=== PATIENT | male | born 1960 | race Caucasian/White ===

== ENCOUNTER 2018-09-16 13:03 | Emergency (ER) | payer BC ==
[~2018-09-16] VITALS: Ht 170.2 cm; Wt 72.7 kg
[2018-09-16 13:11] VITALS: BP 154/84
[2018-09-16] MEDS ORDERED: CEPH-572 PO (14:14)
[2018-09-16] MEDS ORDERED: SILV20CR13 TOP (14:14)
[2018-09-16] MEDS ORDERED: silver sulfadiazine cream 400gm jar TP STA ×2 (14:37→14:51)
== END 2018-09-16 15:04 | disposition home or self-care (01) ==
LOC: ER 13:04
DX: T25.211A Burn of second degree of right ankle, initial encounter (principal); F12.90 Cannabis use, unspecified, uncomplicated; F15.90 Other stimulant use, unspecified, uncomplicated; X08.8XXA Exposure to other specified smoke, fire and flames, initial encounter; Y93.89 Activity, other specified; Y92.89 Other specified places as the place of occurrence of the external cause; Y99.9 Unspecified external cause status
CPT/HCPCS: 16020; 73630; 99284

== ENCOUNTER 2022-01-09 13:52 | Emergency (ER) | payer BC ==
[~2022-01-09] VITALS: Ht 170.2 cm; Wt 72.7 kg
[~2022-01-09 13:52] MED LIST: SILV20CR13 TOP
--- NOTE | 2022-01-09 14:20 | NUR ---
PER EDMD OK NOT TO CALL TRAUMA ALERT; VERBAL RECEIVED FOR HEAD CT
[2022-01-09 16:03] VITALS: BP 135/89
[2022-01-09] MEDS ORDERED: LIDOcaine 5% patch TP STA (16:12)
[2022-01-09] MEDS ORDERED: NAPR-56 PO (16:34)
[2022-01-09] MEDS ORDERED: LIDO700A32 TOP (16:34)
[2022-01-09] MEDS ORDERED: HYDR-3965 PO (16:34)
== END 2022-01-09 16:53 | disposition home or self-care (01) ==
LOC: ER 13:53
DX: S22.42XA Multiple fractures of ribs, left side, initial encounter for closed fracture (principal); R07.81 Pleurodynia; F12.90 Cannabis use, unspecified, uncomplicated; F15.90 Other stimulant use, unspecified, uncomplicated; Z72.89 Other problems related to lifestyle; Z79.899 Other long term (current) drug therapy; W19.XXXA Unspecified fall, initial encounter; Y93.89 Activity, other specified; Y92.89 Other specified places as the place of occurrence of the external cause; Y99.8 Other external cause status
CPT/HCPCS: 70450; 71101; 99284

== ENCOUNTER 2022-01-16 01:03 | Emergency (ER) | payer BC ==
[~2022-01-16] VITALS: Ht 170.2 cm; Wt 72.7 kg
[~2022-01-16 01:03] MED LIST changes: +HYDR-3965 PO; +LIDO700A32 TOP; +NAPR-56 PO
[2022-01-16 03:09] LABS: BASOPHILS # (AUTO) 0.1 X10'3 (0-0.2); BASOPHILS % (AUTO) 0.8 % (0-1); EOSINOPHILS # (AUTO) 0.2 X10'3 (0-0.9); EOSINOPHILS % (AUTO) 2.2 % (0-6); HEMATOCRIT 40.6 % (42.0-52.0); HEMOGLOBIN 13.4 g/dl (14.0-17.9); LYMPHOCYTES # (AUTO) 1.1 X10'3 (1.1-4.8); LYMPHOCYTES % (AUTO) 12.9 % (21-51); MEAN CORPUSCULAR HEMOGLOBIN 29.4 PG (27.0-31.0); MEAN CORPUSCULAR VOLUME 89.1 FL (78-98); MEAN PLATELET VOLUME 7.7 FL (7.4-10.4); MONOCYTES # (AUTO) 0.7 X10'3 (0-0.9); MONOCYTES % (AUTO) 7.8 % (2-12); NEUTROPHILS # (AUTO) 6.6 X10'3 (1.8-7.7); NEUTROPHILS % (AUTO) 76.3 % (42-75); PLATELET COUNT 430 X10'3 (140-440); RED BLOOD COUNT 4.55 X10'6 (4.70-6.10); RED CELL DISTRIBUTION WIDTH 13.5 % (11.5-14.5); WHITE BLOOD COUNT 8.6 X10'3 (4.5-11.0)
[2022-01-16 03:13] LABS: ALANINE AMINOTRANSFERASE 28 U/L (12-78); ALBUMIN 3.4 G/DL (3.4-5.0); ALBUMIN/GLOBULIN RATIO 1.1 (1.1-1.5); ALKALINE PHOSPHATASE 76 IU/L (46-116); ANION GAP 9 (8-16); ASPARTATE AMINO TRANSFERASE 21 U/L (10-37); BILIRUBIN,TOTAL 0.6 MG/DL (0.1-1.0); BLOOD UREA NITROGEN 29 MG/DL (7-18); BUN/CREATININE RATIO 37.7 (5.4-32.0); CALCIUM 8.9 MG/DL (8.5-10.1); CHLORIDE 108 MMOL/L (99-107); CREATININE 0.77 MG/DL (0.60-1.10); GLUCOSE 100 MG/DL (70-104); POTASSIUM 4.1 MMOL/L (3.5-5.1); SODIUM 143 MMOL/L (135-145); TOTAL CARBON DIOXIDE 25.6 MMOL/L (24-32); TOTAL PROTEIN 6.6 G/DL (6.4-8.2); eGFR > 90 ML/MIN
[2022-01-16 06:57] VITALS: BP 134/80
== END 2022-01-16 07:09 | disposition home or self-care (01) ==
LOC: ER 01:03
DX: R07.81 Pleurodynia (principal); F12.10 Cannabis abuse, uncomplicated; F15.10 Other stimulant abuse, uncomplicated; Z79.899 Other long term (current) drug therapy
CPT/HCPCS: 36415; 71045; 80053; 84484; 85025; 93005; 99285